=== PATIENT | female | born 1960 | race Caucasian/White ===

== ENCOUNTER 2016-11-05 18:11 | Emergency (ER) | payer OTHER ==
[~2016-11-05] VITALS: Ht 162.6 cm; Wt 88.5 kg
[~2016-11-05 18:11] MED LIST: ALLERGY25 MG PO; BENADRYL25 MG PO; CIPRO PO; DESYREL50 MG PO; FLEXERIL10 MG PO; GABAPENTIN300 MG PO; LIPITOR40 MG PO; LORTAB 5-325 M1 EACH PO; LORTAB 7.5-5001 TAB PO; MOBIC PO; PANTOPRAZOLE SO40 MG PO; PAXIL CR PO; SEROQUEL25 MG PO; TOPAMAX25 MG PO; TRAMADOL HCL50 M1 PO; TYLENOL #3 PO
== END 2016-11-05 21:15 | disposition home or self-care (01) ==
LOC: CED 18:11
DX: S29.9XXA Unspecified injury of thorax, initial encounter (principal); E11.9 Type 2 diabetes mellitus without complications; K21.9 Gastro-esophageal reflux disease without esophagitis; X50.1XXA Overexertion from prolonged static or awkward postures, initial encounter
CPT/HCPCS: 99283